=== PATIENT | male | born 1995 | race Caucasian/White ===

== ENCOUNTER 2022-05-16 18:46 | Emergency (ER) | payer MEDICAID ==
[~2022-05-16] VITALS: Ht 160 cm; Wt 101.2 kg
[2022-05-16 18:56] VITALS: BP 131/82
--- NOTE | 2022-05-16 19:05 | NUR ---
PT WALKED TO ROOM 1 WITH CO PUNCHED WOUND ON LEFT PALM WITH SWELLING X 2 DAYS. PT WAS A/OX4, SPEAKS FULL SENTENCES, FOLLOWS COMMAND, DENIES POWELL AND DIZZINESS.
[2022-05-16] MEDS ORDERED: IBUPROFEN 600 MG TAB PO ONE (19:15)
[2022-05-16] MEDS ORDERED: BACITRACIN OINT 500 UNITS/GM PKT TP ONE (19:15)
[2022-05-16] MEDS ORDERED: IBUP-2213 PO (19:51)
[2022-05-16] MEDS ORDERED: BACI1PAC6 TP (19:51)
[2022-05-16] MEDS ORDERED: CEPH-588 PO (19:51)
[2022-05-16 22:06] VITALS: BP 129/84
--- NOTE | 2022-05-16 22:11 | NUR ---
Patient discharged with v/s stable. Written and verbal after care instructions given and explained. Patient verbalized understanding. Ambulatory with steady gait. All questions addressed prior to discharge. Advised to follow up with PMD. Addendum: 05/16/22 at 2212 by [email or web address] Patient discharged with v/s stable. Written and verbal after care instructions given and explained. Patient alert, oriented and verbalized understanding of instructions. Ambulatory with steady gait. All questions addressed prior to discharge. ID band removed. Patient advised to follow up with PMD. Rx of given. Patient educated on indication of medication including possible reaction and side effects. Opportunity to ask questions provided and answered.
== END 2022-05-16 22:10 | disposition home or self-care (01) ==
LOC: MED 18:46
DX: S61.432A Puncture wound without foreign body of left hand, initial encounter (principal); R03.0 Elevated blood-pressure reading, without diagnosis of hypertension; X58.XXXA Exposure to other specified factors, initial encounter; Y93.89 Activity, other specified; Y92.89 Other specified places as the place of occurrence of the external cause; Y99.8 Other external cause status
CPT/HCPCS: 73130; 99284